=== PATIENT | female | born 1935 | race Caucasian/White ===

== ENCOUNTER 2018-09-30 08:27 | Outpatient (CLI) | payer MEDICARE, BC ==
--- NOTE | 2018-09-30 10:52 | BD ---
DEXA SCAN: Date: 09-30-18 Provided Clinical History: Osteoporosis. FINDINGS: Comparison 12-16-16 Lumbar Spine: BMD (g/cm2) L1 .947 T-Score: -.4 L2 .976 T-Score: -.5 L3 1.115 T-Score: .3 L4 1.064 T-Score: 0.0 L1-L4 1.027 T-Score: -.2 Femoral Neck: .684 T-Score: -1.5 Total Femur: .847 T-Score: -.8 Impression: Calculated bone mineral density meets the criteria for osteopenia in the left femoral neck and places the patient at increased risk for fracture. POS: [facility]
== END 2018-09-30 08:28 | disposition home or self-care (01) ==
LOC: BICMAMMO 08:27
PROVIDERS: ATTEND Internal Medicine Rheumatology
DX: M81.0 Age-related osteoporosis without current pathological fracture (principal); M85.89 Other specified disorders of bone density and structure, multiple sites
CPT/HCPCS: 77080

== ENCOUNTER 2021-03-22 13:59 | Outpatient (CLI) | payer MEDICARE, BC | END 2021-03-22 14:00 | disposition home or self-care (01) | LOC: BICMAMMO 13:59 | PROVIDERS: ATTEND Internal Medicine Rheumatology | DX: M81.0 Age-related osteoporosis without current pathological fracture (principal); M85.89 Other specified disorders of bone density and structure, multiple sites | CPT/HCPCS: 77080 ==

== ENCOUNTER 2021-04-24 16:13 | Observation (INO) | payer MEDICARE, BC ==
[~2021-04-24 16:13] MED LIST: Iopamidol-370 76% 500 ML 1 ML ONE
[2021-04-24 16:56] LABS: #Eosinphils 0.3 thou/uL (0.0-0.7); #Lymphocytes 2.2 thou/uL (1.20-3.40); #Monocytes 1.1 thou/uL (0.11-0.59); #Neutrophils 3.7 thou/uL (1.40-6.50); %Basophils 0.2 % (0.0-1.0); %Eosinophils 3.9 % (0.0-10.0); %Monocytes 14.6 % (0.0-10.0); %Neutrophils 51.3 % (42.0-75.0); Hemoglobin 12.6 g/dL (12.0-16.0); Mean Corpuscular HGB CONC 32.6 g/dL (32.0-36.0); Mean Corpuscular Hemoglobin 33.8 pg (27.0-31.0); Mean Platelet Volume 8.8 fL (7.4-10.4); Platelet Count 216 thou/uL (130-400); RBC Distribution Width 14.8 % (11.5-14.5); Red Blood Cell (RBC) Count 3.74 mill/uL (4.20-5.40); White Blood Cell (WBC) Count 7.3 thou/uL (4.8-10.8)
[2021-04-24 17:29] LABS: ALT (SGPT) 16 U/L (8-55); AST (SGOT) 27 U/L (5-34); Albumin 3.9 g/dL (3.4-4.8); Alkaline Phosphatase 65 U/L (40-110); Anion Gap 15 mmol/L (10-20); BUN (Urea Nitrogen) 17 mg/dL (9.8-20.1); Bilirubin, Total 0.9 mg/dL (0.2-1.2); CK (CPK) 37 U/L (29-168); Calc. Creatinine Clearance 0 mL/min (70-130); Calcium 9.5 mg/dL (7.8-10.44); Carbon Dioxide 25 mmol/L (23-31); Chloride 102 mmol/L (98-107); Globulin 2.9 g/dL (2.4-3.5); Glucose 106 mg/dL (83-110); Lipase 30 U/L (8-78); Protein, Total 6.8 g/dL (5.8-8.1); Sodium 138 mmol/L (136-145)
[2021-04-24] MEDS ORDERED: Enoxaparin Sodium 80 MG/0.8 ML SYRINGE ONE (19:52)
[2021-04-24 20:55] LABS: Troponin I Less than 0.010 ng/mL (< 0.028)
[2021-04-24] MEDS ORDERED: Ondansetron PF 4 MG/2 ML Vial IVP PRN (21:05)
[2021-04-24] MEDS ORDERED: Nitroglycerin 0.4 MG TAB (25 Tab Bottle) SL PRN (21:05)
[2021-04-24] MEDS ORDERED: Acetaminophen 325 MG TAB PO PRN (21:05)
[2021-04-24] MEDS ORDERED: hydrALAZINE 20 MG/ML VIAL SLOW IVP PRN (21:10)
[2021-04-24 22:03] VITALS: BMI 23.7
[2021-04-25] LABS: Troponin I Less than 0.010 ng/mL (< 0.028)
[2021-04-25 05:36] LABS: Anion Gap 14 mmol/L (10-20); BUN (Urea Nitrogen) 15 mg/dL (9.8-20.1); Calc. Creatinine Clearance 61 mL/min (70-130); Calcium 8.6 mg/dL (7.8-10.44); Carbon Dioxide 23 mmol/L (23-31); Chloride 104 mmol/L (98-107); Glucose 89 mg/dL (83-110); Potassium 3.6 mmol/L (3.5-5.1); Sodium 137 mmol/L (136-145)
[2021-04-25 05:37] LABS: Band 2 % (5-11); Eosinophils 3 % (0-10); Hemoglobin 11.5 g/dL (12.0-16.0); Hypochromia SLIGHT = 6-15 cells (100X) (0-5/hpf); Lymphocytes 33 % (21-51); MDiff Complete? YES; Mean Corpuscular HGB CONC 34.4 g/dL (32.0-36.0); Mean Corpuscular Hemoglobin 35.1 pg (27.0-31.0); Mean Platelet Volume 8.3 fL (7.4-10.4); Monocytes 8 % (0-10); Neutrophil 47 % (42-75); Platelet Count 176 thou/uL (130-400); Platelet Morphology Comment Appears Adequate; RBC Distribution Width 14.7 % (11.5-14.5); Reactive Lymphocytes 7 % (0-10); Red Blood Cell (RBC) Count 3.28 mill/uL (4.20-5.40); White Blood Cell (WBC) Count 6.1 thou/uL (4.8-10.8)
[2021-04-25] MEDS ORDERED: Levothyroxine Sodium 75 MCG TAB PO SCH (06:00)
[2021-04-25] MEDS ORDERED: Hydrochlorothiazide 25 MG TAB PO SCH (09:00)
[2021-04-25] MEDS ORDERED: Regadenoson 0.4 MG/5 ML SYRINGE ONE (09:17)
[2021-04-25 11:38] VITALS: BP 164/74; TEMP 98.5
== END 2021-04-25 12:30 | disposition home or self-care (01) ==
LOC: ERS 16:13 → 2SW 20:11
PROVIDERS: ADMIT Internal Medicine; ATTEND Internal Medicine
DX: R07.89 Other chest pain (principal); I44.0 Atrioventricular block, first degree; I10 Essential (primary) hypertension; E03.9 Hypothyroidism, unspecified; Z79.82 Long term (current) use of aspirin; Z79.899 Other long term (current) drug therapy
CPT/HCPCS: 71045; 71275; 78452; 80048; 80053; 82550; 83690; 83880; 84484 ×2; 85025 ×2; 85379; 93005; 93017; 96372; 99285; A9500; G0378 ×3; 36415; J1650; J2785; Q9967

== ENCOUNTER 2023-03-04 12:18 | Outpatient (CLI) | payer MEDICARE, BC | END 2023-03-04 12:19 | disposition home or self-care (01) | LOC: TBSIIMAG 12:18 | PROVIDERS: ATTEND Specialist | DX: M47.26 Other spondylosis with radiculopathy, lumbar region (principal); M51.27 Other intervertebral disc displacement, lumbosacral region | CPT/HCPCS: 72148 ==

== ENCOUNTER 2023-04-15 09:02 | Outpatient (CLI) | payer MEDICARE | END 2023-04-15 09:03 | disposition home or self-care (01) | LOC: BICMAMMO 09:02 | PROVIDERS: ATTEND Internal Medicine Rheumatology | DX: M81.0 Age-related osteoporosis without current pathological fracture (principal) | CPT/HCPCS: 77080 ==

== ENCOUNTER 2023-06-26 13:17 | Outpatient (CLI) | payer MEDICARE, BC ==
[2023-06-26 15:38] LABS: Hematocrit 33.7 % (34.9-44.5); Hemoglobin 10.8 g/dL (12.0-15.5); Platelet Count 255 10x3/uL (150-450); RBC Distribution Width 15.6 % (11.5-14.5); Red Blood Cell (RBC) Count 3.18 10x6/uL (3.90-5.03); White Blood Cell (WBC) Count 5.9 10x3/uL (3.5-10.5)
[2023-06-26 15:54] LABS: PTT 22.5 sec (22.0-33.0); Prothrombin Time 10.3 sec (9.5-12.1)
[2023-06-26 16:02] LABS: Anion Gap 15 mmol/L (10-20); BUN (Urea Nitrogen) 14 mg/dL (9.8-20.1); Calc. Creatinine Clearance 0 mL/min (70-130); Calcium 9.4 mg/dL (7.8-10.44); Carbon Dioxide 26 mmol/L (23-31); Chloride 104 mmol/L (98-107); Estimated GFR 62; Glucose 118 mg/dL (83-110); Potassium 4.2 mmol/L (3.5-5.1); Sodium 141 mmol/L (136-145)
== END 2023-06-26 13:18 | disposition home or self-care (01) ==
LOC: LABBT 13:17
PROVIDERS: ATTEND Surgery
DX: Z01.818 Encounter for other preprocedural examination (principal); M51.26 Other intervertebral disc displacement, lumbar region; M54.16 Radiculopathy, lumbar region
CPT/HCPCS: 80048; 85027; 85610; 85730; 93005; 93010

== ENCOUNTER 2023-07-01 07:08 | Observation (INO) | payer MEDICARE, BC ==
[2023-07-01] MEDS ORDERED: Vancomycin 1 GM VIAL ONE (09:54)
[2023-07-01] MEDS ORDERED: Thrombin 5000 UNITS/5 ML VIAL ONE (09:54)
[2023-07-01] MEDS ORDERED: Sodium Chloride 0.9% 100 ML ONE (09:57)
[2023-07-01] MEDS ORDERED: CEFAZOLIN 2 GM VIAL ONE (09:57)
[2023-07-01] MEDS ORDERED: fentaNYL 50 mcg/mL 1 mL Vial ONE ×5 (10:06→15:45)
[2023-07-01] MEDS ORDERED: Dexamethasone 20 MG/5 ML VIAL ONE (10:13)
[2023-07-01] MEDS ORDERED: Ondansetron PF 4 MG/2 ML Vial ONE (10:13)
[2023-07-01] MEDS ORDERED: Rocuronium Bromide 10 MG/ML (10ML VIAL) ONE (10:13)
[2023-07-01] MEDS ORDERED: Lidocaine 1% PF 5 ML VIAL ONE (10:13)
[2023-07-01] MEDS ORDERED: PHENYLEPHRINE-NS 100 MCG/ML 10 ML SYRINGE ONE (10:13)
[2023-07-01] MEDS ORDERED: PROPOFOL 200 MG/20 ML VIAL ONE (10:13)
[2023-07-01] MEDS ORDERED: MINERAL OIL/WHITE PETROLATUM 3.5 GM TUBE ONE (10:17)
[2023-07-01] MEDS ORDERED: Phenylephrine 10 MG/ML VIAL ONE (10:59)
[2023-07-01] MEDS ORDERED: Ondansetron HCl/PF 4 MG/2 ML Vial IVP PRN (11:27)
[2023-07-01] MEDS ORDERED: Meperidine HCl/PF 25 MG/ML VIAL SLOW IVP PRN (11:27)
[2023-07-01] MEDS ORDERED: Promethazine HCl 25 MG/ML VIAL IM PRN (11:27)
[2023-07-01] MEDS ORDERED: PACU-Morphine 4MG/ML VIAL SLOW IVP PRN (11:27)
[2023-07-01] MEDS ORDERED: SUGAMMADEX SODIUM 200 MG/2 ML VIAL ONE (11:30)
[2023-07-01] MEDS ORDERED: Ondansetron PF 4 MG/2 ML Vial IVP PRN (11:46)
[2023-07-01] MEDS ORDERED: diphenhydrAMINE 25 MG CAP PO PRN (11:46)
[2023-07-01] MEDS ORDERED: Acetaminophen/Codeine 30-300mg Tablet PO PRN (11:46)
[2023-07-01] MEDS ORDERED: Morphine 2 MG/ML VIAL SLOW IVP PRN (11:46)
[2023-07-01] MEDS ORDERED: traMADol HCl 50 MG TAB PO PRN (11:46)
[2023-07-01] MEDS ORDERED: Acetaminophen 325 MG TAB PO PRN (11:46)
[2023-07-01] MEDS ORDERED: tiZANidine HCl 4 MG TAB PO PRN (11:50)
[2023-07-01] MEDS: CEFAZOLIN 2 GM in Sodium Chloride 0.9% 100 ML IVPB SCH (17:20)
[2023-07-01 17:31] VITALS: BMI 22.5
[2023-07-01] MEDS: Sodium Chloride 0.9% 1,000 ML IV SCH (17:41)
[2023-07-01] MEDS: Gabapentin 300 MG CAP PO SCH (20:02)
[2023-07-01] MEDS: Carvedilol 6.25 MG TAB PO SCH (20:02)
[2023-07-01] MEDS: HYDROcodone/Acetaminophen 7.5/325 mg Tablet PO PRN (22:14)
[2023-07-02] MEDS: Sodium Chloride 0.9% 1,000 ML IV SCH (00:05)
[2023-07-02] MEDS: CEFAZOLIN 2 GM in Sodium Chloride 0.9% 100 ML IVPB SCH (01:03)
[2023-07-02] MEDS ORDERED: Levothyroxine Sodium 75 MCG TAB PO SCH (06:00)
[2023-07-02] MEDS: Carvedilol 6.25 MG TAB PO SCH (08:59)
[2023-07-02] MEDS: Gabapentin 300 MG CAP PO SCH (08:59)
[2023-07-02] MEDS ORDERED: Ascorbic Acid 500 mg Chewable Tablet PO SCH (09:00)
[2023-07-02] MEDS ORDERED: NIFEdipine XL 60 MG TAB PO SCH (09:00)
[2023-07-02] MEDS ORDERED: Magnesium Oxide 250 MG TAB PO SCH (09:00)
[2023-07-02] MEDS ORDERED: Folic Acid 1 MG TAB PO SCH (09:00)
[2023-07-02] MEDS ORDERED: Cholecalciferol 1,000 UNITS (25 MCG) TAB PO SCH (09:00)
[2023-07-02 11:29] VITALS: BP 145/74; TEMP 98
[2023-07-02] MEDS: HYDROcodone/Acetaminophen 7.5/325 mg Tablet PO PRN (12:10)
== END 2023-07-02 13:15 | disposition home or self-care (01) ==
LOC: SDC 07:08 → SJJU 11:52
PROVIDERS: ADMIT Surgery; ATTEND Surgery
PROC: 01NB0ZZ Release Lumbar Nerve, Open Approach (ICD-10-PCS; principal; 2023-07-01)
DX: M51.17 Intervertebral disc disorders with radiculopathy, lumbosacral region (principal); M06.9 Rheumatoid arthritis, unspecified
CPT/HCPCS: 63030; 97116; J3010; J1100; J2272; J2370; J2405; J2704; J3370; J3490